=== PATIENT | male | born 2005 | race Caucasian/White ===

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

== ENCOUNTER 2023-04-30 14:59 | Emergency (ER) | payer OTHER ==
--- NOTE | 2023-04-30 15:04 | ERPHSYRPT ---
- History of Present Illness Time Seen by Provider: 04/30/23 15:04 Historian: patient Exam Limitations: no limitations Physician History: This is a 18-year-old white male whose had no prior abdominal surgeries and presents with right-sided abdominal pain. Symptoms started yesterday but were worse this morning. Today he felt nauseated. He did not sleep well throughout the night. He states that the pain did go down into his right lower quadrant and right groin. Patient [facility] seen at the [facility] and laboratory studies were performed. I reviewed the notes from [facility] and the results of the labs. The patient has not had diarrhea. He has had nausea but no vomiting. He denies chest pain and he denies shortness of breath. He has not had a fever or cough. Timing/Duration: yesterday Activities at Onset: none Quality: cramping Abdominal Pain Onset Location: RUQ, RLQ Pain Radiation: groin Severity of Pain-Max: mild Modifying Factors: Improves With: nothing Associated Symptoms: nausea, No chest pain, No diaphoresis, No fever/chills, No vomiting Previous symptoms: no prior history Allergies/Adverse Reactions: No Known Drug Allergies Allergy (Verified 04/30/23 15:05) Hx Tetanus, Diphtheria Vaccination/Date Given: Yes Hx Influenza Vaccination/Date Given: Yes Hx Pneumococcal Vaccination/Date Given: No Travel Risk - International Travel Have you traveled outside of the country in past 3 weeks: No - Coronavirus Screening Are you exhibiting any of the following symptoms?: No Close contact with a COVID-19 positive Pt in past 14-21 Days: No - Vaccine Status Have you recieved a Covid-19 vaccination: Yes 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 - Review of Systems Constitutional: No Symptoms Eyes: No Symptoms Ears, Nose, & Throat: No Symptoms Respiratory: No Symptoms Cardiac: No Symptoms Abdominal/Gastrointestinal: Abdominal Pain, Nausea, Constipation, Appetite Changes, No Vomiting (Right side), No Diarrhea Genitourinary Symptoms: No Symptoms Musculoskeletal: No Symptoms Skin: No Symptoms Neurological: No Symptoms Psychological: No Symptoms Endocrine: No Symptoms Hematologic/Lymphatic: No Symptoms Immunological/Allergic: No Symptoms All Other Systems: Reviewed and Negative - Past Medical History Pertinent Past Medical History: Yes Psycho-Social History: Anxiety Other Medical History: impetigo 2018 - Past Surgical History Past Surgical History: Yes Other Surgical History: warts on hands - Social History Smoking Status: Never smoker Exposure to second hand smoke: No Drug Use: none Patient Lives Alone: No - Nursing Vital Signs Nursing Vital Signs: Initial Vital Signs Temperature 97.0 F 04/30/23 15:00 Pulse Rate 70 04/30/23 15:00 Respiratory Rate 18 04/30/23 15:00 Blood Pressure 153/91 04/30/23 15:00 O2 Sat by Pulse Oximetry 97 04/30/23 15:00 Pain Scale Pain Intensity 5 - Physical Exam General Appearance: no apparent distress, alert, anxiety Eye Exam: PERRL/EOMI, eyes nml inspection Ears, Nose, Throat Exam: normal ENT inspection, moist mucous membranes Neck Exam: normal inspection, non-tender, supple, full range of motion Respiratory Exam: normal breath sounds, lungs clear, airway intact, No chest tenderness, No respiratory distress Cardiovascular Exam: regular rate/rhythm, normal heart sounds, normal peripheral pulses Gastrointestinal/Abdomen Exam: soft, normal bowel sounds, tenderness (Mild tenderness to palpation right side), guarding ( of his abdomen), No rebound ( mild right side to palpation) Rectal Exam: not done Back Exam: normal inspection, normal range of motion, No CVA tenderness, No vertebral tenderness Extremity Exam: normal inspection, normal range of motion, pelvis stable Neurologic Exam: alert, oriented x 3, cooperative, 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 tested, normal mood/affect, nml cerebellar function, nml station & gait, sensation nml Skin Exam: normal color, warm, dry Lymphatic Exam: No adenopathy SpO2 Interpretation: normal O2 Delivery: Room Air - Course Nursing assessment & vital signs reviewed: Yes Ordered Tests: Active Orders 24 hr Category Date Time Status IV Insertion STAT Care 04/30/23 15:14 Active ABDOMEN AND PELVIS W/0 CONTRAS [CT] Stat Exams 04/30/23 15:14 Completed AMYLASE Stat Lab 04/30/23 15:14 Completed LIPASE Stat Lab 04/30/23 15:14 Completed UA W/RFX UR CULTURE Stat Lab 04/30/23 15:17 Completed Medication Summary Discontinued Medications Generic Name Dose Route Start Last Admin Trade Name Freq PRN Reason Stop Dose Admin Sodium Chloride 1,000 mls @ 999 mls/hr 04/30/23 15:14 04/30/23 15:29 Sodium Chloride 0.9% 1000 Ml IV 04/30/23 16:14 999 mls/hr .Q1H1M STA Administration Sodium Chloride Confirm 04/30/23 15:26 Sodium Chloride 0.9% 1000 Ml Administered 04/30/23 15:27 Dose 1,000 mls @ ud .ROUTE .STK-MED ONE Ketorolac Tromethamine 30 mg 04/30/23 15:14 04/30/23 15:29 Ketorolac Tromethamine 30 Mg/Ml Inj IV 04/30/23 15:15 30 mg STAT ONE Administration Ketorolac Tromethamine Confirm 04/30/23 15:26 Ketorolac Tromethamine 30 Mg/Ml Inj Administered 04/30/23 15:27 Dose 30 mg .ROUTE .STK-MED ONE Ondansetron HCl 4 mg 04/30/23 15:23 04/30/23 15:29 Ondansetron Hcl 4 Mg/2 Ml Vial IV 04/30/23 15:24 4 mg STAT ONE Administration Ondansetron HCl Confirm 04/30/23 15:26 Ondansetron Hcl 4 Mg/2 Ml Vial Administered 04/30/23 15:27 Dose 4 mg .ROUTE .STK-MED ONE Lab/Rad Data: Laboratory Results 04/30/23 04/30/23 Range/Units 15:17 15:14 Amylase 61 (30-110) U/L Lipase 53 (23-300) U/L Urine Color Yellow (Yellow) Urine Appearance Clear (Clear) Urine pH 6.5 (4.6-8.0) Ur Specific [place] <=1.005 (1.005-1.030) Urine Protein 100 A (Negative) Urine Glucose (UA) Negative (Negative) mg/dL Urine Ketones Negative (Negative) Urine Blood Small A (Negative) Urine Nitrite Negative (Negative) Urine Bilirubin Negative (Negative) Urine Urobilinogen 1.0 A (0.2) mg/dL Ur Leukocyte Esterase Negative (Negative) U Hyaline Cast (Auto) None Seen (0-2) /LPF Urine Microscopic RBC 0-2 (0-5) /HPF Urine Microscopic WBC 0-2 (0-5) /HPF Ur Epithelial Cells None Seen (None Seen) /HPF Urine Bacteria None Seen (None Seen) /HPF Urine Culture Reflexed NO (NO) - Progress Progress: improved, pain not gone completely, re-examined Progress Note: 04/30/23 16:02 This patient's medical issue is 1 of moderate complexity. Level complexity in the work-up performed is based on review of the patient's past medical history, review of the patient's medication list, review the patient's drug allergy list, history present illness and physical findings on examination. This patient's work-up includes placement of intravenous line, urinalysis, CT scan of the abdomen pelvis, infusion of 1 L of normal saline solution. In addition, we ordered an amylase and lipase level and infuse 4 mg of Zofran intravenously. I did not repeat the same labs that were performed today prior to his arrival to the emergency department. 04/30/23 16:23 CT scan of the abdomen pelvis without contrast was interpreted by the radiologist. The impression was read by me. There is minimal right perinephric stranding consistent with mild nephritis Counseled pt/family regarding: lab results, diagnosis, need for follow-up, rad results Medical Desision Making - Diagnostic Testing Diagnostic test were ordered, analyzed, and reviewed by me: Yes Radiological Interpretation: Reviewed by me, Teleradiologist Report - Risk of complications The pt has a mod risk of morbidity or mortality based on: Need for prescription drug management - Departure Departure Disposition: Home Clinical Impression: Nephritis Condition: Stable Critical Care Time: No Referrals: OSCAR CORLEY NP [Primary Care Provider] - Follow up/PCP as directed Additional Instructions: Drink plenty of fluids. Use Tylenol and ibuprofen for pain and fever control. Take the antibiotics as prescribed. Call your primary care provider, 05/01/2023, to make arranges for follow-up appointment in the next 2 to 3 days Prescriptions: Ondansetron ODT 4 MG [Zofran Odt 4 mg] 4 mg PO Q6H PRN PRN #10 tablet PRN Reason: Vomiting Ciprofloxacin [Cipro 500 MG] 500 mg PO BID #14 tablet
[2023-04-30] MEDS ORDERED: TORAdol 30 mg Injection IV ONE (15:14)
[2023-04-30] MEDS ORDERED: Sodium Chloride 0.9% 1000 ML 1,000 ML IV STA (15:14)
[2023-04-30] MEDS ORDERED: Zofran 4 MG/2 ML VIAL IV ONE (15:23)
[2023-04-30] MEDS ORDERED: Sodium Chloride 0.9% 1000 ML 1,000 ML ONE (15:26)
[2023-04-30] MEDS ORDERED: TORAdol 30 mg Injection ONE (15:26)
[2023-04-30] MEDS ORDERED: Zofran 4 MG/2 ML VIAL ONE (15:26)
[2023-04-30 15:27] VITALS: RESP 18; TEMP 97
[2023-04-30 15:36] LABS: AMYLASE 61 U/L (30-110); LIPASE 53 U/L (23-300)
[2023-04-30 16:06] LABS: Appearance Clear (Clear); Bacteria None Seen /HPF (None Seen); Bilirubin Negative (Negative); Blood Small (Negative); Epithelial Cells None Seen /HPF (None Seen); Glucose, Urine Negative (Negative); Ketones Negative (Negative); Leukocyte Esterase Negative (Negative); Nitrite Negative (Negative); Ph 6.5 (4.6-8.0); Protein,Urine Dip 100 (Negative); RBC 0-2 /HPF (0-5); Specific Gravity <=1.005 (1.005-1.030); WBC 0-2 /HPF (0-5)
[2023-04-30 16:08] LABS: ADD URINE CULTURE? NO (NO); Hyaline Casts None Seen /LPF (0-2)
--- NOTE | 2023-04-30 16:20 | XRAY ---
Indication: Right lower quadrant pain one day. Multiple contiguous axial images obtained through the abdomen and pelvis without contrast. Comparison: None Lung bases clear. Heart not enlarged. Stomach is distended with food/fluid. Noncontrasted stomach and bowel loops appear nonobstructed with normal appearing appendix. No free fluid/air. Right kidney demonstrates minimal perinephric stranding suggesting inflammatory process. Remaining liver, gallbladder, pancreas, spleen, adrenal glands, kidneys, ureters, bladder, and aorta are unremarkable for noncontrast exam. Osseous structures intact. Impression: 1. Minimal right perinephric stranding. Rule out nephritis. 2. Remaining CT abdomen/pelvis without contrast exam is negative.
[2023-04-30] MEDS ORDERED: ROCEPHIN 1 Gm-D5w 50 ml Bag** 1 G/50 ML IVPB IV STA (16:25)
[2023-04-30] MEDS ORDERED: ROCEPHIN 1 Gm-D5w 50 ml Bag** 1 G/50 ML IVPB IV ONE (16:31)
[2023-04-30 16:42] VITALS: BP 168/82; PULSE 76; O2SAT 98
== END 2023-04-30 16:46 | disposition home or self-care (01) ==
LOC: ED 14:59
DX: N05.9 Unspecified nephritic syndrome with unspecified morphologic changes (principal); R10.31 Right lower quadrant pain; R10.11 Right upper quadrant pain; R11.0 Nausea
CPT/HCPCS: 36000; 36415; 74176; 81001; 82150; 83690; 96365; 96374; 96375; 99284; J0696; J1885; J2405

== ENCOUNTER 2023-05-02 02:14 | Emergency (ER) | payer OTHER ==
[2023-05-02 02:35] VITALS: TEMP 98.5
[2023-05-02] MEDS ORDERED: TORAdol 30 mg Injection IV ONE (02:39)
[2023-05-02] MEDS ORDERED: TORAdol 30 mg Injection ONE (02:40)
[2023-05-02 02:45] LABS: Absolute Neutrophil Ct (ANC) 10.91 x10^3/uL (1.4-6.9); BASOPHIL % 0.3 % (0.0-0.4); Basophil (Absolute #) 0.04 x10^3/uL (0-0.4); Eosinophil (Absolute #) 0.14 x10^3/uL (0-0.5); Hematocrit 42.7 % (42-50); Hemoglobin 13.8 g/dL (12.5-18.0); IMMATURE GRAN # 0.04 x10^3u/L (0.00-0.03); IMMATURE GRAN % 0.3 % (0.00-0.4); Lymphocyte (Absolute #) 1.55 x10^3/uL (1.0-4.6); Mean Cell Volume 89.3 fL (78-100); Mean Corpuscular Hemoglobin 28.9 pg (26-32); Mean Corpuscular Hgb Concent. 32.3 g/dL (32-36); Mean Platelet Volume 9.5 fL (7.5-11.0); Monocyte (Absolute #) 1.36 x10^3/uL (0.0-1.3); Monocytes % 9.7 % (0.0-12.0); Neutrophil % 77.7 % (36.0-66.0); Platelet Count 232 x10^3/uL (150-450); Red Blood Count 4.78 x10^6/uL (4.1-5.6); Red Cell Distribution Width 12.2 % (11.5-14.0)
[2023-05-02 02:54] LABS: Appearance CLEAR (CLEAR); Bacteria None Seen /HPF (None Seen); Bilirubin NEGATIVE (NEGATIVE); Epithelial Cells None Seen /HPF (None Seen); Glucose NEGATIVE (NEGATIVE); Hyaline Casts NONE SEEN /LPF (0-2); Ketones NEGATIVE (NEGATIVE); Nitrite NEGATIVE (NEGATIVE); Ph 5.5 (5-6); Protein,Urine Dip 30 (Negative); RBC 0-2 /HPF (0-5); RBC MODERATE Ery/ul (0-5); Specific Gravity <=1.005 (1.005-1.025); Urobilinogen 0.2 mg/dL (0-1); WBC 0-2 /HPF (0-5)
[2023-05-02 02:55] LABS: ADD URINE CULTURE? YES (NO)
[2023-05-02 03:02] LABS: Amphetamine,Urine NEGATIVE (NEGATIVE); Barbiturate,Urine NEGATIVE (NEGATIVE); Benzodiazepine,Urine NEGATIVE (NEGATIVE); Cocaine,Urine NEGATIVE (NEGATIVE); Methadone,Urine NEGATIVE (NEGATIVE); Opiate,Urine NEGATIVE (NEGATIVE); PCP,Urine NEGATIVE (NEGATIVE); THC,Urine NEGATIVE (NEGATIVE)
[2023-05-02 03:05] LABS: ALBUMIN 4.1 g/dL (3.5-5.0); ANION GAP 13.2 MEQ/L (5-15); BILIRUBIN,TOTAL 0.6 mg/dL (0.2-1.3); Calcium 8.4 mg/dL (8.4-10.2); Creatinine 1 2.61 mg/dL (0.66-1.25); EST GLOMERULAR FILTRATION RATE 33.5 ML/MIN; Potassium 4.3 mmol/L (3.5-5.1)
--- NOTE | 2023-05-02 03:11 | ERPHSYRPT ---
- History of Present Illness Historian: patient, other (Father) Exam Limitations: no limitations Patient Subjective Stated Complaint: pt states that he was here yesterday with same thing and was told something kidney but is unsure what it was called. states the pain started Saturday morning and hasn't gotten any better and wasn't able to sleep tonight because the pain worsened. denies painful urination. states that tonight he is also nauseated and vomited one time that looked like food he had eaten and green liquid. states pain is right lower abdomen and radiates around to right flank. Triage Nursing Assessment: pt ambulated into room 9 independently with slow steady gait after standing on scale for weight acquisition and to bathroom for specimen collection. pt is alert and oriented times three, able to speak in complete sentences, able to move all extremities, and with resp even and unlabored. abd soft, nontender to palpable, with positive bowel sounds in all 4 quads. pt reports that his pain is constant, described as a pressure ("like when you have to poop"), and rated 8/10 scale. pt denies cp, sob, difficulty breathing, change in appetite, difficulty with bowel elimination, lightheadedness, or dizziness. Physician History: 18 yo WM w flank pain x 2 days. Pt was seen in ER 2 days ago and diagnosed w nephritis and started on Cipro/Zofran. Pain is 7/10, pressure, and nothing makes it better or worse. He has had some N/V but denies fever/dysuria/hematuria/diarrhea. Timing/Duration: other (3 days) Quality: pressure Abdominal Pain Onset Location: flank (R flank) Pain Radiation: no radiation Severity of Pain-Max: moderate Severity of Pain-Current: mild Modifying Factors: Improves With: nothing Associated Symptoms: denies symptoms Previous symptoms: same symptoms as today Allergies/Adverse Reactions: No Known Drug Allergies Allergy (Verified 05/02/23 02:17) Hx Tetanus, Diphtheria Vaccination/Date Given: Yes Hx Influenza Vaccination/Date Given: Yes Hx Pneumococcal Vaccination/Date Given: No Travel Risk - International Travel Have you traveled outside of the country in past 3 weeks: No - Coronavirus Screening Are you exhibiting any of the following symptoms?: No Close contact with a COVID-19 positive Pt in past 14-21 Days: No - Vaccine Status Have you recieved a Covid-19 vaccination: Yes Cissp: [employer]eto[employer] - Vaccination Dates Date of 2cond Vaccination (if applicable): unknown - Review of Systems All Other Systems: Reviewed and Negative - Past Medical History Pertinent Past Medical History: Yes Neurological History: No Pertinent History ENT History: No Pertinent History Cardiac History: No Pertinent History Respiratory History: No Pertinent History Endocrine Medical History: No Pertinent History Musculoskeletal History: No Pertinent History GI Medical History: No Pertinent History History: No Pertinent History Psycho-Social History: Anxiety Male Reproductive Disorders: No Pertinent History Other Medical History: impetigo 2018 - Past Surgical History Past Surgical History: Yes Neuro Surgical History: No Pertinent History Cardiac: No Pertinent History Respiratory: No Pertinent History Gastrointestinal: No Pertinent History Genitourinary: No Pertinent History Musculoskeletal: No Pertinent History Male Surgical History: No Pertinent History Other Surgical History: warts on hands - Social History Smoking Status: Never smoker Exposure to second hand smoke: No Drug Use: none Patient Lives Alone: No - Nursing Vital Signs Nursing Vital Signs: Initial Vital Signs Temperature 98.5 F 05/02/23 02:21 Pulse Rate 64 05/02/23 02:21 Respiratory Rate 18 05/02/23 02:21 Blood Pressure 159/105 05/02/23 02:21 O2 Sat by Pulse Oximetry 96 05/02/23 02:21 Pain Scale Pain Intensity 2 Hypertensive - Physical Exam General Appearance: no apparent distress Eye Exam: PERRL/EOMI, eyes nml inspection Ears, Nose, Throat Exam: normal ENT inspection, TMs normal, pharynx normal, moist mucous membranes Neck Exam: normal inspection, non-tender, supple, full range of motion, No meningismus, No mass, No Brudzinski, No Kernig's Respiratory Exam: normal breath sounds, lungs clear, airway intact Cardiovascular Exam: regular rate/rhythm, normal heart sounds, normal peripheral pulses, capillary refill <2 sec, No murmur Gastrointestinal/Abdomen Exam: soft, normal bowel sounds, other (Mild R flank TTP), No tenderness Back Exam: normal inspection, normal range of motion, No CVA tenderness Extremity Exam: normal inspection, normal range of motion Neurologic Exam: alert, oriented x 3, cooperative, 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, normal mood/affect, nml cerebellar function, nml station & gait, sensation nml Skin Exam: normal color, warm, dry Lymphatic Exam: No adenopathy SpO2 Interpretation: normal SpO2: 96 O2 Delivery: Room Air Ordered Tests: Active Orders 24 hr Category Date Time Status IV Insertion STAT Care 05/02/23 02:38 Active ABDOMEN AND PELVIS W/0 CONTRAS [CT] Stat Exams 05/02/23 02:36 Completed CBC W DIFF Stat Lab 05/02/23 02:42 Completed CMP Stat Lab 05/02/23 02:42 Completed CULTURE,URINE Stat Lab 05/02/23 02:39 Received Urine Triage Profile Stat Lab 05/02/23 02:39 Completed Medication Summary Generic Name Dose Route Start Last Admin Trade Name Freq PRN Reason Stop Dose Admin Sodium Chloride 1,000 mls @ 999 mls/hr 05/02/23 03:16 05/02/23 03:21 Sodium Chloride 0.9% 1000 Ml IV 05/02/23 04:16 999 mls/hr .Q1H1M STA Administration Ceftriaxone Sodium/Dextrose 1 g in 50 mls @ 100 mls/hr 05/02/23 03:51 05/02/23 03:55 Rocephin 1 Gm-D5w 50 Ml Bag IV 05/02/23 04:20 100 mls/hr STAT STA 100 mls/hr Administration Sodium Chloride 1,000 mls @ 999 mls/hr 05/02/23 03:59 Sodium Chloride 0.9% 1000 Ml IV 05/02/23 04:59 .Q1H1M STA Discontinued Medications Generic Name Dose Route Start Last Admin Trade Name Abrahamq PRN Reason Stop Dose Admin Sodium Chloride Confirm 05/02/23 03:20 Sodium Chloride 0.9% 1000 Ml Administered 05/02/23 03:21 Dose 1,000 mls @ ud .ROUTE .STK-MED ONE Ceftriaxone Sodium/Dextrose Confirm 05/02/23 03:51 Rocephin 1 Gm-D5w 50 Ml Bag Administered 05/02/23 03:52 Dose 1 g in 50 mls @ ud IV .STK-MED ONE Ketorolac Tromethamine 30 mg 05/02/23 02:39 05/02/23 02:41 Ketorolac Tromethamine 30 Mg/Ml Inj IV 05/02/23 02:40 30 mg STAT ONE Administration Ketorolac Tromethamine Confirm 05/02/23 02:40 Ketorolac Tromethamine 30 Mg/Ml Inj Administered 05/02/23 02:41 Dose 30 mg .ROUTE .STK-MED ONE Lab/Rad Data: Laboratory Result Diagrams 05/02/23 02:42 05/02/23 02:42 Laboratory Results 05/02/23 05/02/23 05/02/23 Range/Units 02:42 02:42 02:39 WBC 14.0 H (4.0-10.5) x10^3/uL RBC 4.78 (4.1-5.6) x10^6/uL Hgb 13.8 (12.5-18.0) g/dL Hct 42.7 (42-50) % MCV 89.3 (78-100) fL MCH 28.9 (26-32) pg MCHC 32.3 (32-36) g/dL RDW 12.2 (11.5-14.0) % Plt Count 232 (150-450) x10^3/uL MPV 9.5 (7.5-11.0) fL Gran % 77.7 H (36.0-66.0) % Immature Gran % (Auto) 0.3 (0.00-0.4) % Nucleat RBC Rel Count 0.0 (0.00-0.1) % Eos # (Auto) 0.14 (0-0.5) x10^3/uL Immature Gran # (Auto) 0.04 H (0.00-0.03) x10^3u/L Absolute Lymphs (auto) 1.55 (1.0-4.6) x10^3/uL Absolute Monos (auto) 1.36 H (0.0-1.3) x10^3/uL Absolute Nucleated RBC 0.00 (0.00-0.01) x10^3u/L Lymphocytes % 11.0 L (24.0-44.0) % Monocytes % 9.7 (0.0-12.0) % Eosinophils % 1.0 (0.00-5.0) % Basophils % 0.3 (0.0-0.4) % Absolute Granulocytes 10.91 H (1.4-6.9) x10^3/uL Basophils # 0.04 (0-0.4) x10^3/uL Sodium 140 (137-145) mmol/L Potassium 4.3 (3.5-5.1) mmol/L Chloride 105 (98-107) mmol/L Carbon Dioxide 26 (22-30) mmol/L Anion Gap 13.2 (5-15) MEQ/L BUN 26 H (9-20) mg/dL Creatinine 2.61 H (0.66-1.25) mg/dL Estimated GFR 33.5 ML/MIN Glucose 90 (74-106) mg/dL Calcium 8.4 (8.4-10.2) mg/dL Total Bilirubin 0.60 (0.2-1.3) mg/dL AST 55 (17-59) U/L ALT 32 (0-50) U/L Alkaline Phosphatase 63 (38-126) U/L Serum Total Protein 7.0 (6.3-8.2) g/dL Albumin 4.1 (3.5-5.0) g/dL Urine Color (YELLOW) Urine Appearance (CLEAR) Urine pH (5-6) Ur Specific [place] (1.005-1.025) POC Urine Protein Conf (Negative) Urine Ketones (NEGATIVE) Urine Nitrite (NEGATIVE) Urine Bilirubin (NEGATIVE) Urine Urobilinogen (0-1) mg/dL Urine Leukocytes (NEGATIVE) U Hyaline Cast (Auto) (0-2) /LPF Urine RBC (0-5) Kenneth/ul Urine Microscopic RBC (0-5) /HPF Urine Microscopic WBC (0-5) /HPF Ur Epithelial Cells (None Seen) /HPF Urine Bacteria (None Seen) /HPF Urine Culture Reflexed (NO) Urine Glucose (NEGATIVE) mg/dL Urine Opiates Level NEGATIVE (NEGATIVE) Ur Methadone NEGATIVE (NEGATIVE) Urine Barbiturates NEGATIVE (NEGATIVE) Ur Phencyclidine (PCP) NEGATIVE (NEGATIVE) Urine Amphetamine NEGATIVE (NEGATIVE) U Benzodiazepine Level NEGATIVE (NEGATIVE) Urine Cocaine NEGATIVE (NEGATIVE) Urine Marijuana (THC) NEGATIVE (NEGATIVE) 05/02/23 Range/Units 02:39 WBC (4.0-10.5) x10^3/uL RBC (4.1-5.6) x10^6/uL Hgb (12.5-18.0) g/dL Hct (42-50) % MCV (78-100) fL MCH (26-32) pg MCHC (32-36) g/dL RDW (11.5-14.0) % Plt Count (150-450) x10^3/uL MPV (7.5-11.0) fL Gran % (36.0-66.0) % Immature Gran % (Auto) (0.00-0.4) % Nucleat RBC Rel Count (0.00-0.1) % Eos # (Auto) (0-0.5) x10^3/uL Immature Gran # (Auto) (0.00-0.03) x10^3u/L Absolute Lymphs (auto) (1.0-4.6) x10^3/uL Absolute Monos (auto) (0.0-1.3) x10^3/uL Absolute Nucleated RBC (0.00-0.01) x10^3u/L Lymphocytes % (24.0-44.0) % Monocytes % (0.0-12.0) % Eosinophils % (0.00-5.0) % Basophils % (0.0-0.4) % Absolute Granulocytes (1.4-6.9) x10^3/uL Basophils # (0-0.4) x10^3/uL Sodium (137-145) mmol/L Potassium (3.5-5.1) mmol/L Chloride (98-107) mmol/L Carbon Dioxide (22-30) mmol/L Anion Gap (5-15) MEQ/L BUN (9-20) mg/dL Creatinine (0.66-1.25) mg/dL Estimated GFR ML/MIN Glucose (74-106) mg/dL Calcium (8.4-10.2) mg/dL Total Bilirubin (0.2-1.3) mg/dL AST (17-59) U/L ALT (0-50) U/L Alkaline Phosphatase (38-126) U/L Serum Total Protein (6.3-8.2) g/dL Albumin (3.5-5.0) g/dL Urine Color YELLOW (YELLOW) Urine Appearance CLEAR (CLEAR) Urine pH 5.5 (5-6) Ur Specific [place] <=1.005 A (1.005-1.025) POC Urine Protein Conf 30 A (Negative) Urine Ketones NEGATIVE (NEGATIVE) Urine Nitrite NEGATIVE (NEGATIVE) Urine Bilirubin NEGATIVE (NEGATIVE) Urine Urobilinogen 0.2 (0-1) mg/dL Urine Leukocytes NEGATIVE (NEGATIVE) U Hyaline Cast (Auto) NONE SEEN (0-2) /LPF Urine RBC MODERATE A (0-5) Kenneth/ul Urine Microscopic RBC 0-2 (0-5) /HPF Urine Microscopic WBC 0-2 (0-5) /HPF Ur Epithelial Cells None Seen (None Seen) /HPF Urine Bacteria None Seen (None Seen) /HPF Urine Culture Reflexed YES (NO) Urine Glucose NEGATIVE (NEGATIVE) mg/dL Urine Opiates Level (NEGATIVE) Ur Methadone (NEGATIVE) Urine Barbiturates (NEGATIVE) Ur Phencyclidine (PCP) (NEGATIVE) Urine Amphetamine (NEGATIVE) U Benzodiazepine Level (NEGATIVE) Urine Cocaine (NEGATIVE) Urine Marijuana (THC) (NEGATIVE) - Progress Progress Note: 05/02/23 03:14 Nursing note and vital signs reviewed No food or housing insecurities noted Chart reviewed from 04/30/23 IV access started 30mg IV Toradol w improvement in pain 05/02/23 03:59 1L NS bolus x2 1gm IV Rocephin Pt accepted by Dr. Estes at [facility] Counseled pt/family regarding: lab results, diagnosis, rad results Medical Desision Making - Independent Historian Additional History obtained from: Family - Diagnostic Testing Diagnostic test were ordered, analyzed, and reviewed by me: Yes Radiological Interpretation: Reviewed by me, Teleradiologist Report - Risk of complications The pt has a high risk of morbidity or mortality based on: Decision regarding hospitilization or escalation of hosp level of care - Departure Departure Disposition: Transfer Clinical Impression: Acute kidney injury, Nephritis Condition: Stable Critical Care Time: No Referrals: OSCAR CORLEY NP [Primary Care Provider] - Follow up/PCP as directed
[2023-05-02] MEDS ORDERED: Sodium Chloride 0.9% 1000 ML 1,000 ML IV STA ×2 (03:16→03:59)
[2023-05-02] MEDS ORDERED: Sodium Chloride 0.9% 1000 ML 1,000 ML ONE ×2 (03:20→04:16)
--- NOTE | 2023-05-02 03:40 | XRAY ---
CLINICAL HISTORY:Flank pain COMPARISON:04/30/2023 TECHNIQUE:Axial CT images of the abdomen and pelvis were acquired without intravenous contrast. Coronal and sagittal reformats provided. FINDINGS: The liver is normal in size, morphology and appears unremarkable with no intrahepatic or extrahepatic bile duct dilation. Gallbladder is partially contracted with slightly edematous sen, may be reactionary. No stones or pericholecystic fluid seen. Unremarkable appearing pancreas. No pancreatic mass or ductal dilatation is seen. Unremarkable appearing spleen. Small splenunculus is noted. The adrenal glands are normal. The kidneys are normal in size with no cysts, masses or hydronephrosis. No renal calculus is seen. The ureters are normal with no stones. Right kidney is horizontally oriented. Mild right-sided perinephric and periureteric fat stranding's along with minimal thickening of the Zuckerkandl's, Gerota's and lateral conal fascia. No large perinephric fluid collection is seen. Multiple prominent retroperitoneal lymph nodes, enlarged aortocaval lymph node measures 1 cm in short axis. Findings may be due to inflammatory/infective etiology. Bladder is unremarkable with no stones. Pelvic viscera appear unremarkable. The stomach appears unremarkable. Unremarkable appearing duodenum. Unprepared small bowel and colon are non-distended with no gross abnormality. No evidence of acute appendicitis. Trace free fluid is seen in the pelvis. No free intraperitoneal air is seen. Visualized lung bases are clear. No significant bony abnormality detected. IMPRESSION: No evidence of obstructive uropathy. On comparison with the previous CT, there is interval development of mild right-sided perinephric and periureteric fat stranding's along with minimal thickening of the pararenal fascias. Enlarged aortocaval lymph node. Findings may be due to inflammatory/infective etiology. Correlation with urinalysis may be obtained for further evaluation. Gallbladder is partially contracted with slightly edematous sen, may be reactionary. Mild ascites in the pelvis. Within the limitations of this unenhanced acquisition, rest of the visualized abdomino-pelvic viscera appear grossly unremarkable. Electronically Signed by: Shannon Stanley MD. (05/02/2023 02:38:25 [employer]ALS SALES REPRESENTATIVE)
[2023-05-02] MEDS ORDERED: ROCEPHIN 1 Gm-D5w 50 ml Bag** 1 G/50 ML IVPB IV ONE (03:51)
[2023-05-02] MEDS ORDERED: ROCEPHIN 1 Gm-D5w 50 ml Bag** 1 G/50 ML IVPB IV STA (03:51)
[2023-05-02 04:04] VITALS: BP 156/100; PULSE 76; RESP 18; O2SAT 96
== END 2023-05-02 04:42 | disposition short-term general hospital (02) ==
LOC: ED 02:14
DX: N05.9 Unspecified nephritic syndrome with unspecified morphologic changes (principal); N17.9 Acute kidney failure, unspecified; R10.9 Unspecified abdominal pain; R11.2 Nausea with vomiting, unspecified
CPT/HCPCS: 36000; 36415; 74176; 80053; 80307; 81015; 85025; 87086; 96365; 96374; 99285; J0696; J1885